=== PATIENT | female | born 1955 | race Caucasian/White ===

== ENCOUNTER 2018-02-23 09:36 | Emergency (ER) | payer MEDICARE, OTHER ==
[~2018-02-23 09:36] MED LIST: ASPI-183 PO; ESCI10TA PO; HYDR-3516 PO; LISI-519 PO; OMEP20TA93 PO; SYNT88TA PO
[2018-02-23 09:39] VITALS: BP 134/76; TEMP 97.7; O2SAT 96
--- NOTE | 2018-02-23 09:54 | PD ---
HPI Chief Complaint: Injury Time Seen by Provider: 09:48 Travel History International Travel<30 days: No Contact w/Intl Traveler<30days: No Traveled to known affect area: No History of Present Illness HPI 62-year-old female presents emergency department with worsening right heel pain over the past 3 days. Patient denies any specific injury, although she does remember stepping wrong off a step ladder the other day. She has since developed worsening pain in the posterior heel of the right foot to the point where she is having difficulty ambulating. She said some pain in the right great toe, for which she was going to see a ehs manager, but has not scheduled it yet. She denies fever, chills, or other symptoms. No history of gout. Pain is a 8 out of 10 and worse with bearing weight. Patient is allergic to statins, Zetia, and propoxyphene. PFSH Past Medical History Medical History: Denies Significant Hx Depression: Yes Cancer: Yes (SKIN CANCER ON FACE) Cardiovascular Problems: No Diabetes: No Endocrine: No Gastrointestinal Disorders: Yes (GERD) Genitourinary: No Hepatitis: No Hiatal Hernia: No Hypertension: Yes Immune Disorder: No Implanted Vascular Access Dvce: Yes Musculoskeletal: Yes (ARTHRITIS) Neurologic: No Psychiatric: Yes (DEPRESSION) Reproductive: No Respiratory: Yes (SLEEP APNEA, USES A MACHINE) Thyroid Disease: Yes ?: Not Past Surgical History Surgical History: No Previous Surgery Abdominal Surgery: Yes (GALLBLADDER, COLON RESECTION, HERNIA SURGERY WITH MESH) AICD: No Body Medical Devices: ABD MESH Joint Replacement: Yes (L SHOULDER) Pacemaker: No Other Surgery: Yes Social History Alcohol Use: Yes Tobacco Use: No Substance Use: No Allergies-Medications (Allergen,Severity, Reaction): Coded Allergies: propoxyphene (Verified Allergy, Severe, Confusion, 08/06/17) Jbopkjy-Yqh-Slm Reductase Inhibitor (Verified Allergy, Unknown, 08/06/17) ezetimibe (Verified Allergy, Unknown, 08/06/17) Reported Meds & Prescriptions Reported Meds & Active Scripts Active Prednisone 20 Mg Tab 20 Mg PO BID 5 Days Aspirin 325 Mg Tab 325 Mg PO BID Hydrocodone-Acetaminophen 5-325 mg Tab 2 Tab PO Q6HR PRN Reported Escitalopram (Escitalopram Oxalate) 10 Mg Tab 10 Mg PO DAILY Omeprazole 20 Mg Tab 20 Mg PO HS Lisinopril 5 Mg Tab 5 Mg PO DAILY Synthroid (Levothyroxine Sodium) 88 Mcg Tab 88 Mcg PO DAILY Review of Systems Except as stated in HPI: all other systems reviewed are Neg General / Constitutional: No: Fever Eyes: No: Visual changes HENT: No: Headaches Cardiovascular: No: Chest Pain or Discomfort Respiratory: No: Shortness of Breath Gastrointestinal: No: Abdominal Pain Genitourinary: No: Dysuria Musculoskeletal: Positive: Arthralgias, Limited ROM, Pain (See history of present) Skin: No Rash Neurologic: No: Weakness Psychiatric: No: Depression Endocrine: No: Polydipsia Hematologic/Lymphatic: No: Easy Bruising Physical Exam Narrative GENERAL: Patient appears in mild distress per SKIN: Warm and dry. Normal color. Normal turgor. No rash. No erythema. No signs of cellulitis HEAD: Atraumatic. Normocephalic. EYES: Pupils equal and round. No scleral icterus. No injection or drainage. ENT: No nasal bleeding or discharge. Mucous membranes pink and moist. Pharynx is clear. Airway is patent. NECK: Trachea midline. Supple and nontender CARDIOVASCULAR: Regular rate and rhythm. RESPIRATORY: No accessory muscle use. Clear to auscultation. Breath sounds equal bilaterally. MUSCULOSKELETAL: Extremities without clubbing, cyanosis, or edema. No obvious deformities. The right foot appears normal without significant swelling, or signs of infection. Patient is acutely tender at the insertion of the Achilles at the base of the right heel. Patient has no significant pain on the sole of her foot on the right. Rest of the muscle skeletal exam is unremarkable. NEUROLOGICAL: Awake and alert. No obvious cranial nerve deficits. Motor grossly within normal limits. Five out of 5 muscle strength in the arms and legs. Normal speech. PSYCHIATRIC: Appropriate mood and affect; insight and judgment normal. Data Data Last Documented VS Vital Signs Date Time Temp Pulse Resp B/P (MAP) Pulse Ox O2 Delivery O2 Flow Rate FiO2 02/23/18 09:39 97.7 74 20 134/76 (95) 96 Orders Orders Prednisone (Deltasone) (02/23/18 10:00) Foot, Complete ([id number]) (02/23/18 09:55) Crutches (02/23/18 09:55) Ed Discharge Order (02/23/18 10:34) MDM Medical Decision Making Medical Screen Exam Complete: Yes Emergency Medical Condition: Yes Differential Diagnosis Right heel pain. Achilles tendinitis. Plantar fasciitis. Bone spurs Narrative Course X-ray of the right foot is obtained. X-ray showed no acute findings per radiologist. Patient is given 40 mg prednisone p.o. Patient is placed on crutches. Patient can take extra strength Tylenol for pain. She is encouraged to use heat followed by ice and stretching Patient is to follow-up with Dr. Bocanegra, the ehs manager on-call for further evaluation and treatment. Diagnosis Primary Impression: Achilles tendinitis, left leg Referrals: Amelia Bocanegra DPM call for appointment Patient Instructions: Achilles Tendinitis (ED), Achilles Tendinitis Exercises ( GEN), General Instructions Med/Other Pt SpecificInfo: Prescription(s) given Scripts Prednisone (Prednisone) 20 Mg Tab 20 MG PO BID for 5 Days, #10 TAB 0 Refills Prov: Amelia Shaw MD 02/23/18 Disposition: 01 DISCHARGE HOME Condition: Stable Claude Knapp February 23, 2018 09:54
[2018-02-23] MEDS ORDERED: predniSONE 20 MG TAB PO ONE (10:00)
[2018-02-23] MEDS ORDERED: PRED20 PO (10:01)
--- NOTE | 2018-02-23 10:25 | RADRPT ---
EXAM DATE: 02/23/2018 10:22 AM EDT AGE/SEX: 62 years / Female INDICATIONS: RIght posterior foot and heel pain. CLINICAL DATA: This is the patient's initial encounter. Patient reports that signs and symptoms have been present for 4 - 6 days and indicates a pain score of 8/10. MEDICAL/SURGICAL HISTORY: None. None. COMPARISON: No prior [facility] exams available for comparison. FINDINGS: Bony structures are intact and in normal alignment. . Degenerative changes first metatarsal phalangea l joint. There is spurring posteriorly along the calcaneus. No radiopaque foreign bodies seen. CONCLUSION: No acute bony traumatic. No fracture. Electronically signed by: Ramon Hollingsworth MD 02/23/2018 10:24 AM EDT
== END 2018-02-23 11:00 | disposition home or self-care (01) ==
LOC: NEPK 09:36
DX: M76.62 Achilles tendinitis, left leg (principal); M79.674 Pain in right toe(s); F32.9 Major depressive disorder, single episode, unspecified; Z85.828 Personal history of other malignant neoplasm of skin; K21.9 Gastro-esophageal reflux disease without esophagitis; M19.90 Unspecified osteoarthritis, unspecified site; I10 Essential (primary) hypertension; G47.30 Sleep apnea, unspecified
CPT/HCPCS: 73630; 99283; E0113; J7512

== ENCOUNTER 2018-06-12 19:55 | Observation (INO) ==
--- NOTE | 2018-06-12 21:53 | ED ---
HPI General Chief Complaint: Dizziness Stated Complaint: dizzy, shaky Time Seen by Provider: 06/12/18 21:44 Source: patient Mode of arrival: ambulatory Limitations: no limitations History of Present Illness HPI Narrative: 63-year-old female presents to the emergency department for complaint of 4-5 days of not feeling well with dizziness worsening today. Patient's had indigestion reflux symptoms with chest discomfort 5-7/10 intensity at worst however currently 0/10 in intensity. Patient had episode of marked diaphoresis reportedly. Patient's also had intermittent nausea and shortness of breath. Patient states she has multiple complaints and has been to her primary care provider who is encouraged to follow-up with her camp head counselor but states that she has been too busy to do this. Patient became very anxious today as she felt near syncopal and she is responsible for childcare of a grandchild. Patient denies any fever has had intermittent chills no present headache although has had intermittent headache no visual disturbance no photophobia no diplopia no loss of vision no change in mentation no difficulty with her speech or swallowing. Patient's had no unilateral upper extremity or lower extremity numbness tingling or weakness. Patient's had generalized weakness. Patient denies any referred neck jaw back shoulder arm pain. Patient's had intermittent left lower quadrant abdominal pain with diarrhea and she states this makes her bed bound for 3 days when this occurs. Patient states this has not bothered her over the past 3 days. Patient's had previous partial colectomy due to diverticulitis complications in the remote past has had hernia mesh placement status post cholecystectomy. Patient denies any history of peptic ulcer disease gastritis pancreatitis or recurrent urinary symptoms. Patient has chronic recurrent hemorrhoidal issues and has intermittent red blood per rectum with wiping only. Patient's had no black or tarry stool. Patient denies any injury or fall. Patient states due to multiple complaints decided to come to the emergency room because she felt she needed to be evaluated. Patient is unable to identify exacerbating or alleviating factors. MD complaint: dizziness and near syncope Onset (ago): day(s) (4-5 days) Timing: gradual onset, intermittent and waxing/waning Description: "room spinning" and lightheadedness History of similar episodes: Yes (vertigo in the past) History of trauma: No Severity: moderate Relieving factors: nothing Exacerbating factors: nothing Associated symptoms: chest pain ("reflux"), diaphoresis, shortness of breath, weakness and nausea Related Data Home Medications Medication Instructions Recorded Confirmed escitalopram oxalate [Lexapro] 10 mg PO DAILY 06/12/18 06/12/18 levothyroxine [Synthroid] 88 mcg PO DAILY 06/12/18 06/12/18 lisinopril 5 mg PO DAILY 06/12/18 06/12/18 omeprazole 20 mg PO DAILY 06/12/18 06/12/18 Allergies Allergy/AdvReac Type Severity Reaction Status Date / Time propoxyphene Allergy Severe Confusion Verified 06/12/18 20:39 ezetimibe Allergy Unknown Muscle Pain Verified 06/12/18 20:39 Idthzwi-Pjv-Fqa Reductase Allergy Unknown Muscle Pain Verified 06/12/18 20:39 Inhibitor Review of Systems ROS: all other systems reviewed are negative [facility] Medical History Medical History Arthritis (Acute) HTN (hypertension) (Acute) Hx of carpal tunnel syndrome (Acute) Hx of diverticulitis of colon (Acute) Hx of skin malignancy (Acute) Surgical History Surgical History Hx of cholecystectomy (Acute) Hx of hernia repair (Acute) Hx of shoulder replacement (Acute) Social History Social History Substance History: No History of Abuse Second Hand Smoke Exposure: No Smoking Status: Former smoker How Often Do You Have a Drink Containing Alcohol: 4 or more times a week Recent Travel [facility] within the Last 8 Weeks: No Recent Out of Country Travel within the Last 8 Weeks: No Immunization History Tetanus Immunization: <5 Years Hx Influenza Vaccine This Season: Yes Exam Narrative Exam Narrative: GENERAL: Well-developed well-nourished female in no acute distress no respiratory distress GCS 15 SKIN: Focused skin assessment warm/dry. HEAD: Atraumatic. Normocephalic. EYES: Pupils equal and round and reactive to light. No scleral icterus. No injection or drainage. ENT: No nasal bleeding or discharge. Mucous membranes pink and moist. Airway is patent. NECK: Trachea midline. No JVD. Supple no meningismus no nuchal rigidity. CARDIOVASCULAR: Regular rate and rhythm. No murmur appreciated. RESPIRATORY: No accessory muscle use. Clear to auscultation. Breath sounds equal bilaterally. GASTROINTESTINAL: Abdomen soft, mild tenderness to palpation left lower quadrant without guarding or rebound and no palpable pulsatile mass, nondistended. Hepatic and splenic margins not palpable. MUSCULOSKELETAL: No obvious deformities. No clubbing. No cyanosis. No edema. Radial and dorsalis pedis pulses 2+ to palpation bilaterally. NEUROLOGICAL: Awake and alert. GCS 15 no obvious cranial nerve deficits. Motor grossly within normal limits 5/5 bilateral upper extremities and lower extremities. No pronator drift. No limb ataxia. Normal speech. PSYCHIATRIC: Appropriate mood and affect; insight and judgment normal. Course Initial Documented Vital Signs Temperature 98.6 F 06/12/18 20:34 Pulse Rate 65 06/12/18 20:34 Respiratory Rate 18 06/12/18 20:34 Blood Pressure 173/89 H 06/12/18 20:34 Pulse Oximetry 99 06/12/18 20:34 Last Documented Vital Signs Temperature 98.7 F 06/13/18 03:12 Pulse Rate 63 06/13/18 03:12 Respiratory Rate 18 06/13/18 03:12 Blood Pressure 118/67 06/13/18 03:12 Pulse Oximetry 99 06/13/18 06:33 Medical Decision Making MDM Narrative Medical Screen Exam Complete: Yes Emergency Medical Condition: Yes Differential Diagnosis Differential Diagnosis: Dizziness, vertigo, arrhythmia, dehydration, anemia, acs , mi, tia, dehydration, uti, sepsis Lab Data Result diagrams: 06/12/18 21:55 06/12/18 21:55 Lab Results 06/12/18 06/12/18 06/12/18 Range/Units 21:55 21:55 21:55 WBC 8.2 (4.0-11.0) th/mm3 RBC 4.44 (4.00-5.30) mil/mm3 Hgb 11.9 (11.6-15.3) gm/dL Hct 36.9 (35.0-46.0) % MCV 83.1 (80.0-100.0) fL MCH 26.8 L (27.0-34.0) pg MCHC 32.3 (32.0-36.0) % RDW 16.6 (11.6-17.2) % Plt Count 231 (150-450) th/mm3 MPV 7.3 (7.0-11.0) fL Neut % (Auto) 62.8 (16.0-70.0) % Lymph % (Auto) 27.1 (9.0-44.0) % [place] % (Auto) 6.3 (0.0-8.0) % Eos % (Auto) 3.2 (0.0-4.0) % Baso % (Auto) 0.6 (0.0-2.0) % Neut # (Auto) 5.1 (1.8-7.7) th/mm3 Lymph # (Auto) 2.2 (1.0-4.8) th/mm3 [place] # (Auto) 0.5 (0.0-0.9) th/mm3 Eos # (Auto) 0.3 (0.0-0.4) th/mm3 Baso # (Auto) 0.0 (0.0-0.2) th/mm3 WBC Differential . Differential Comment Auto diff final PT 10.3 (9.8-11.6) sec INR 1.0 Ratio Sodium 141 (136-145) meq/L Potassium 3.9 (3.5-5.1) meq/L Chloride 107 (98-107) meq/L Carbon Dioxide 23.5 (21.0-32.0) meq/L Anion Gap 11 (5-15) meq/L BUN 14 (7-18) mg/dL Creatinine 0.96 (0.50-1.00) mg/dL Estimated GFR 58 L (>89) mL/min Random Glucose 102 (74-106) mg/dL Calcium 8.8 (8.5-10.1) mg/dL Total Bilirubin 0.2 (0.2-1.0) mg/dL AST 70 H (15-37) U/L ALT 53 (10-53) U/L Alkaline Phosphatase 141 H (45-117) U/L Total Creatine Kinase (26-192) U/L Troponin I Less than 0.02 L (0.02-0.05) ng/mL Total Protein 7.8 (6.4-8.2) g/dL Albumin 3.3 L (3.4-5.0) g/dL TSH 0.074 L (0.358-3.740) uIU/mL Urine Color (Yellw/Straw) Urine Clarity (Clear) Urine pH (5.0-8.5) Ur Specific [place] (1.002-1.035) Urine Protein (Neg-Trace) mg/dL Urine Glucose (UA) (Negative) mg/dL Urine Ketones (Negative) mg/dL Urine Occult Blood (Negative) Urine Nitrate (Negative) Urine Bilirubin (Negative) Urine Urobilinogen (Less than 2) mg/dL Ur Leukocyte Esterase (Negative) Urine RBC (0-3) /hpf Urine WBC (0-5) /hpf Ur Squamous Epith Cells (0-5) /hpf Urine Bacteria (None) /hpf Hyaline Casts (0-3) /lpf Urine Mucus (Occasional) /lpf Micro UA Comment Ur Microscopic Review Urine Culture Comments 06/12/18 06/13/18 Range/Units 22:30 01:15 WBC (4.0-11.0) th/mm3 RBC (4.00-5.30) mil/mm3 Hgb (11.6-15.3) gm/dL Hct (35.0-46.0) % MCV (80.0-100.0) fL MCH (27.0-34.0) pg MCHC (32.0-36.0) % RDW (11.6-17.2) % Plt Count (150-450) th/mm3 MPV (7.0-11.0) fL Neut % (Auto) (16.0-70.0) % Lymph % (Auto) (9.0-44.0) % [place] % (Auto) (0.0-8.0) % Eos % (Auto) (0.0-4.0) % Baso % (Auto) (0.0-2.0) % Neut # (Auto) (1.8-7.7) th/mm3 Lymph # (Auto) (1.0-4.8) th/mm3 [place] # (Auto) (0.0-0.9) th/mm3 Eos # (Auto) (0.0-0.4) th/mm3 Baso # (Auto) (0.0-0.2) th/mm3 WBC Differential Differential Comment PT (9.8-11.6) sec INR Ratio Sodium (136-145) meq/L Potassium (3.5-5.1) meq/L Chloride (98-107) meq/L Carbon Dioxide (21.0-32.0) meq/L Anion Gap (5-15) meq/L BUN (7-18) mg/dL Creatinine (0.50-1.00) mg/dL Estimated GFR (>89) mL/min Random Glucose (74-106) mg/dL Calcium (8.5-10.1) mg/dL Total Bilirubin (0.2-1.0) mg/dL AST (15-37) U/L ALT (10-53) U/L Alkaline Phosphatase (45-117) U/L Total Creatine Kinase 52 (26-192) U/L Troponin I Less than 0.02 L (0.02-0.05) ng/mL Total Protein (6.4-8.2) g/dL Albumin (3.4-5.0) g/dL TSH (0.358-3.740) uIU/mL Urine Color Yellow (Yellw/Straw) Urine Clarity Hazy H (Clear) Urine pH 5.0 (5.0-8.5) Ur Specific [place] 1.024 (1.002-1.035) Urine Protein Negative (Neg-Trace) mg/dL Urine Glucose (UA) Negative (Negative) mg/dL Urine Ketones Trace H (Negative) mg/dL Urine Occult Blood Negative (Negative) Urine Nitrate Negative (Negative) Urine Bilirubin Negative (Negative) Urine Urobilinogen 4 or greater (Less than 2) mg/dL Ur Leukocyte Esterase Trace H (Negative) Urine RBC 1 (0-3) /hpf Urine WBC 3 (0-5) /hpf Ur Squamous Epith Cells 3 (0-5) /hpf Urine Bacteria Rare H (None) /hpf Hyaline Casts 4 (0-3) /lpf Urine Mucus Few H (Occasional) /lpf Micro UA Comment Culture not ind Ur Microscopic Review Not Reportable Urine Culture Comments Culture not ind Imaging Data Radiologist's impression: Chest X-Ray 06/12/18 21:44 CONCLUSION: No evidence of acute cardiopulmonary disease. Head CT 06/12/18 21:44 CONCLUSION: No acute intracranial abnormality. . ECG Data EKG Prior to Arrival: No Attestation: I personally reviewed and interpreted this ECG as follows: Prior ECG tracings: not available for review Interpretation: EKG: Normal sinus rhythm rate [address] elevation injury pattern or ectopy noted Discharge Plan Discharge Disposition Patient Disposition: 30 Still Patient Discharge Condition Condition: Stable Discharge Details Diagnosis: Chest pain, Vertigo Physicians Team ED Provider: Svitlana Hernandez Primary Care Provider: UNKNOWN, Attending Provider: [place] Discharge Interventions Interventions: ED Discharge Assessment Last Done: 06/13/18 01:53 Vital Signs Last Done: 06/12/18 21:28 Status ED Status: Left Department Discharge Information Discharge Date/Time: 06/13/18 01:53
--- NOTE | 2018-06-12 22:02 | CT ---
EXAM DATE: 06/12/2018 9:56 PM EDT AGE/SEX: 63 years / Female INDICATIONS: Dizziness. CLINICAL DATA: This is the patient's initial encounter. Patient reports that signs and symptoms have been present for 1 day and indicates a pain score of 0/10. MEDICAL/SURGICAL HISTORY: Hypertension. None. RADIATION DOSE: 56.35 CTDI (mGy) COMPARISON: . TECHNIQUE: CT of the head without contrast. Using automated exposure control and adjustment of the mA and/or kV according to patient size, radiation dose was kept as low as reasonably achievable to ob tain optimal diagnostic quality images. DICOM format image data is available electronically for revi ew and comparison. FINDINGS: Cerebrum: The ventricles are normal for age. No evidence of midline shift, mass lesion, hemorrhage or acute infarction. No extraaxial fluid collections are seen. Posterior Fossa: The cerebellum and brainstem are intact. The 4th ventricle is midline. The cerebe llopontine angle is unremarkable. Extracranial: The visualized portion of the orbits is intact. Skull: The calvaria is intact. No evidence of skull fracture. CONCLUSION: No acute intracranial abnormality. . Electronically signed by: Cayetano Dumont MD 06/12/2018 10:01 PM EDT
[2018-06-12] MEDS ORDERED: Pantoprazole Inj 40 MG Vial IV.PUSH ONE (22:06)
[2018-06-12 22:16] LABS: Baso % (Auto) 0.6 % (0.0-2.0); Eos # (Auto) 0.3 th/mm3 (0.0-0.4); Eos % (Auto) 3.2 % (0.0-4.0); Hematocrit 36.9 % (35.0-46.0); Hemoglobin 11.9 gm/dL (11.6-15.3); Lymph # (Auto) 2.2 th/mm3 (1.0-4.8); Lymph % (Auto) 27.1 % (9.0-44.0); Mean Corpuscular HGB Conc 32.3 % (32.0-36.0); Mean Corpuscular Hemoglobin 26.8 pg (27.0-34.0); Mean Corpuscular Volume 83.1 fL (80.0-100.0); Mean Platelet Volume 7.3 fL (7.0-11.0); Mono # (Auto) 0.5 th/mm3 (0.0-0.9); Mono % (Auto) 6.3 % (0.0-8.0); Neut # (Auto) 5.1 th/mm3 (1.8-7.7); Neut % (Auto) 62.8 % (16.0-70.0); Platelet Count 231 th/mm3 (150-450); Red Blood Count 4.44 mil/mm3 (4.00-5.30); Red Cell Distribution Width 16.6 % (11.6-17.2); White Blood Count 8.2 th/mm3 (4.0-11.0)
--- NOTE | 2018-06-12 22:17 | XR ---
EXAM DATE: 06/12/2018 10:10 PM EDT AGE/SEX: 63 years / Female INDICATIONS: Short of breath. CLINICAL DATA: This is the patient's initial encounter. Patient reports that signs and symptoms have been present for 4 - 6 days and indicates a pain score of 0/10. MEDICAL/SURGICAL HISTORY: Hypertension. . Shoulder surgery. COMPARISON: 08/07/2017 1V chest x-ray. FINDINGS: No infiltrate, effusion or pneumothorax. Heart size stable, within normal limits. Thoracic aorta is tortuous. Potentially a small hiatal herni a. CONCLUSION: No evidence of acute cardiopulmonary disease. Electronically signed by: Cayetano Dumont MD 06/12/2018 10:16 PM EDT
[2018-06-12 22:40] LABS: Prothrombin Time 10.3 sec (9.8-11.6)
[2018-06-12 22:41] LABS: Alanine Aminotransferase 53 U/L (10-53)
[2018-06-12 22:49] LABS: Albumin 3.3 g/dL (3.4-5.0); Anion Gap 11 meq/L (5-15); Aspartate Aminotransferase 70 U/L (15-37); Blood Urea Nitrogen 14 mg/dL (7-18); Calcium 8.8 mg/dL (8.5-10.1); Carbon Dioxide 23.5 meq/L (21.0-32.0); Chloride 107 meq/L (98-107); Glomerular Filtration Rate 58 mL/min (>89); Glucose,Random 102 mg/dL (74-106); Potassium 3.9 meq/L (3.5-5.1); Sodium 141 meq/L (136-145)
[2018-06-12 22:50] LABS: Alkaline Phosphatase 141 U/L (45-117); Thyroid Stimulating Hormone 0.074 uIU/mL (0.358-3.740); Total Protein 7.8 g/dL (6.4-8.2)
[2018-06-12 22:51] LABS: Bacteria,Urine Rare /hpf; Bilirubin,Urine Negative (Negative); Clarity,Urine Hazy (Clear); Color,Urine Yellow (Yellw/Straw); Glucose,Urine (UA) Negative (Negative); Hyaline Casts,Urine 4 /lpf (0-3); Leukocyte Esterase,Urine Trace (Negative); Mucus,Urine Few /lpf (Occasional); Nitrite,Urine Negative (Negative); Specific Gravity,Urine 1.024 (1.002-1.035); Squamous Epithelial Cell,Urine 3 /hpf (0-5); Urobilinogen,Urine 4 or Greater mg/dL (Less than 2)
[2018-06-13 01:52] LABS: Creatine Kinase 52 U/L (26-192)
[2018-06-13] MEDS ORDERED: Aspirin 325 MG Tablet PO SCH (09:00)
[2018-06-13] MEDS ORDERED: Levothyroxine 88 MCG Tablet PO SCH (09:00)
[2018-06-13] MEDS ORDERED: Escitalopram 10 MG Tablet PO SCH (09:00)
[2018-06-13] MEDS ORDERED: Pantoprazole Sodium 20 MG DR Tablet PO SCH (09:15)
[2018-06-13] MEDS ORDERED: Regadenoson Inj 0.4 MG/5 ML Syringe IV.PUSH ONE (09:33)
--- NOTE | 2018-06-13 09:54 | P.HPCA ---
History of Present Illness Primary Care Physician: UNKNOWN Chief Complaint: Chest pain History of Present Illness: This is a 63-year-old female history of hypertension, hypothyroidism, and GERD that presents to ED with complaint of dizziness for 4-5 days which she describes at times if she were to move her head the room spins. She is also had heartburn issues. She describes as a burning in her chest that was 2 days ago. She states she really does not have much issues with that since taking Prilosec. However the Prilosec did not work 2 nights ago. Then yesterday while she was sitting home talking with her grandchild, she broke out into a cold sweat lasted about 30 minutes. When asked about chest pain. She declines it at first but states that she had a chest discomfort about a month ago. Is left-sided. Lasted a few seconds. Did not really give it much thought. States she has had stress test before. States is many years ago and that was okay. Has hypothyroidism states her medication was adjusted couple months ago. States she needed a little bit more Synthroid. Her TSH in the ED yesterday was a little bit low. Currently denies chest pain. Denies dizziness at this time. Patient has history of hypertension, hypothyroidism, GERD. Quit smoking 20 years ago but prior that she smoked about 1 pack of cigarettes daily for 20 years. Her brother had a coronary artery bypass grafting in his 60s. - Diagnosis (1) Chest pain (2) Hypertension (3) Hypothyroidism Review of Systems General: Patient denies fevers, chills, and recent travel. HEENT: Patient denies headache, sore throat, difficulty swallowing. Cardiovascular: Has the chest discomfort as mentioned above. Denies sensation of heart beating rapidly or irregularly. No syncope. Broke out into a sweat yesterday while talking with her grandchild. Respiratory: Denies shortness of breath or inspirational chest discomfort. Denies coughing wheezing or hemoptysis. GI: Patient denies nausea, vomiting, diarrhea, abdominal pain, bloody stools. Musculoskeletal: Patient denies joint pain or edema. Denies calf pain or edema. Neurovascular: Patient denies numbness, tingling, weakness in extremities. Denies headache. Endocrine: Denies polyuria and polydipsia. Hematologic: Denies easy bruising. Skin: Denies rash or itching. PMFSH - History History Provided By: Patient - Medical History Medical History: Medical History (Last Reviewed 06/12/18 @ 21:50 by Svitlana Hernandez MD) Arthritis HTN (hypertension) Hx of carpal tunnel syndrome Hx of diverticulitis of colon Hx of skin malignancy - Surgical History Surgical History: Surgical History (Last Reviewed 06/12/18 @ 21:50 by Svitlana Hernandez MD) Hx of cholecystectomy Hx of hernia repair Hx of shoulder replacement - Tobacco History Second Hand Smoke Exposure: No Tobacco Use In Past 30 Days: No Smoking Status: Former smoker - Alcohol History How Often Do You Have a Drink Containing Alcohol: 4 or more times a week - Substance Use History Substance History: No History of Abuse - Travel History Recent Travel in the [place] Within the Last 8 Weeks: No Recent Travel Out of the Country Within the Last 8 Weeks: No - Immunization History Tetanus Immunization: <5 Years Hx Influenza Vaccine This Season: Yes Medications and Allergies Active Medications: Active Medications Aspirin (Aspirin) 325 mg PO DAILY HONEY Escitalopram Oxalate (Lexapro) 10 mg PO DAILY HONEY Levothyroxine Sodium (Synthroid) 88 mcg PO DAILY@0600 HOENY Nitroglycerin (Nitrostat Sl) 0.4 mg SL Q5M PRN PRN Reason: CHEST PAIN Pantoprazole Sodium (Protonix) 20 mg PO DAILY HONEY Sodium Chloride (Ns Flush) 2 ml IV.FLUSH PRN PRN PRN Reason: FLUSH AFTER USING IV ACCESS Sodium Chloride (Ns Flush) 2 ml IV.FLUSH BID HONEY Sodium Chloride (Ns Flush) 2 ml IV.FLUSH PRN PRN PRN Reason: FLUSH AFTER USING IV ACCESS Allergies Allergy/AdvReac Type Severity Reaction Status Date / Time propoxyphene Allergy Severe Confusion Verified 06/12/18 20:39 ezetimibe Allergy Unknown Muscle Pain Verified 06/12/18 20:39 Odunnxs-Pou-Mmu Reductase Allergy Unknown Muscle Pain Verified 06/12/18 20:39 Inhibitor Home Medications Medication Instructions Recorded Confirmed Type escitalopram oxalate [Lexapro] 10 mg PO DAILY 06/12/18 06/12/18 History levothyroxine [Synthroid] 88 mcg PO DAILY 06/12/18 06/12/18 History omeprazole 20 mg PO DAILY 06/12/18 06/12/18 History lisinopril 5 mg PO DAILY 06/13/18 06/13/18 History Exam Vital signs: Vital Signs 06/12/18 20:34 06/12/18 21:28 06/12/18 21:47 Temperature 98.6 F Pulse Rate 65 63 Respiratory Rate 18 Blood Pressure 173/89 H 175/84 H Pulse Oximetry 99 97 98 06/13/18 00:42 06/13/18 03:12 06/13/18 06:33 Temperature 98.7 F Pulse Rate 58 L 63 Respiratory Rate 18 18 Blood Pressure 146/74 H 118/67 Pulse Oximetry 97 95 99 06/13/18 07:24 Temperature 98.3 F Pulse Rate 59 L Respiratory Rate 20 Blood Pressure 129/68 Pulse Oximetry 94 L Intake & Output 06/12/18 06/13/18 06/13/18 18:59 06:59 18:59 Intake Total Balance Weight 88 kg Intake: Oral Other: # Voids 0 Date of Last Bowel Movement 06/13/18 Narrative: GENERAL: This is a well-nourished, well-developed patient, in no apparent distress. Patient speaks in clear complete sentences. Patient is pleasant. HEENT: Head is atraumatic and normocephalic. Neck is supple without lymphadenopathy and trachea is midline. No JVD or carotid bruits. CARDIOVASCULAR: Regular rate and rhythm without murmurs, gallops, or rubs. RESPIRATORY: Clear to auscultation. Breath sounds equal bilaterally. No wheezes , rales, or rhonchi. Chest wall is nontender. No use of accessory muscles. GASTROINTESTINAL: Abdomen is nontender, nondistended. Abdomen soft. No obvious pulsatile mass or bruit. No CVA tenderness. Strong femoral pulses bilaterally. Normal bowel sounds in all quadrants. MUSCULOSKELETAL: Patient is moving upper and lower extremities freely. No calf tenderness or edema, no Homans sign. Strong pulses in upper and lower extremities. NEUROLOGICAL: Patient is alert and oriented. Cranial nerves 2-12 are grossly intact. No focal deficits and speech is clear. SKIN: No rash and turgor is normal. Results 06/12/18 21:55 06/12/18 21:55 Cardiac Enzymes 06/12/18 06/13/18 Range/Units 21:55 01:15 AST 70 H (15-37) U/L Troponin I Less than 0.02 L Less than 0.02 L (0.02-0.05) ng/mL Coagulation 06/12/18 Range/Units 21:55 PT 10.3 (9.8-11.6) sec CBC 06/12/18 Range/Units 21:55 WBC 8.2 (4.0-11.0) th/mm3 RBC 4.44 (4.00-5.30) mil/mm3 Hgb 11.9 (11.6-15.3) gm/dL Hct 36.9 (35.0-46.0) % Plt Count 231 (150-450) th/mm3 Neut # (Auto) 5.1 (1.8-7.7) th/mm3 Lymph # (Auto) 2.2 (1.0-4.8) th/mm3 [place] # (Auto) 0.5 (0.0-0.9) th/mm3 Eos # (Auto) 0.3 (0.0-0.4) th/mm3 Baso # (Auto) 0.0 (0.0-0.2) th/mm3 Comprehensive Metabolic Panel 06/12/18 Range/Units 21:55 Sodium 141 (136-145) meq/L Potassium 3.9 (3.5-5.1) meq/L Chloride 107 (98-107) meq/L Carbon Dioxide 23.5 (21.0-32.0) meq/L BUN 14 (7-18) mg/dL Creatinine 0.96 (0.50-1.00) mg/dL Calcium 8.8 (8.5-10.1) mg/dL AST 70 H (15-37) U/L ALT 53 (10-53) U/L Alkaline Phosphatase 141 H (45-117) U/L Total Protein 7.8 (6.4-8.2) g/dL Albumin 3.3 L (3.4-5.0) g/dL Intake and Output 06/12/18 06/13/18 06/13/18 22:59 06:59 14:59 Intake Total Balance Intake: Oral Other: # Voids 0 Date of Last Bowel Movement 06/13/18 Weight 88 kg EKG interpretations - EKG EKG shows: bradycardia (EKGs are sinus bradycardia without significant ST segment depressions or elevations.) Caprini VTE Risk Assessment Caprini VTE Risk Assessment: Moderate/High Risk (score >= 2) Caprini Risk Assessment Model: Point Value = 1 Point Value = 2 Point Value = 3 Point Value = 5 Age 41-60 Minor surgery BMI > 25 kg/m2 Swollen legs Varicose veins or History of unexplained or recurrent spontaneous Oral contraceptives or hormone replacement Sepsis (< 1 month) Serious lung disease, including pneumonia (< 1 month) Abnormal pulmonary function Acute myocardial infarction Congestive heart failure (< 1 month) History of inflammatory bowel disease Medical patient at bed rest Age 61-74 Arthroscopic surgery Major open surgery (> 45 min) Laparoscopic surgery (> 45 min) Malignancy Confined to bed (> 72 hours) Immobilizing plaster cast Central venous access Age >= 75 History of VTE Family history of VTE Factor V Leiden Prothrombin [id number] Lupus anticoagulant Anticardiolipin antibodies Elevated serum homocysteine Heparin-induced thrombocytopenia Other congenital or acquired thrombophilia Stroke (< 1 month) Elective arthroplasty Hip, pelvis, or leg fracture Acute spinal cord injury (< 1 month) Prophylaxis Regimen: Total Risk Factor Score Risk Level Prophylaxis Regimen 0-1 Low Early ambulation 2 Moderate Order ONE of the following: *Sequential Compression Device (SCD) *Heparin 5000 units SQ BID 3-4 Higher Order ONE of the following medications: *Heparin 5000 units SQ TID *Enoxaparin/Lovenox 40 mg SQ daily (WT < 150 kg, CrCl > 30 mL/min) *Enoxaparin/Lovenox 30 mg SQ daily (WT < 150 kg, CrCl > 10-29 mL/min) *Enoxaparin/Lovenox 30 mg SQ BID (WT < 150 kg, CrCl > 30 mL/min) AND/OR *Sequential Compression Device (SCD) 5 or more Highest Order ONE of the following medications: *Heparin 5000 units SQ TID (Preferred with Epidurals) *Enoxaparin/Lovenox 40 mg SQ daily (WT < 150 kg, CrCl > 30 mL/min) *Enoxaparin/Lovenox 30 mg SQ daily (WT < 150 kg, CrCl > 10-29 mL/min) *Enoxaparin/Lovenox 30 mg SQ BID (WT < 150 kg, CrCl > 30 mL/min) AND *Sequential Compression Device (SCD) Assessment and Plan - Assessment (1) Chest pain Code(s): R07.9 - Chest pain, unspecified Status: Acute (2) Hypertension Code(s): I10 - Essential (primary) hypertension Status: Acute (3) Hypothyroidism Code(s): E03.9 - Hypothyroidism, unspecified Status: Acute - Plan * Chest pain: Patient had cardiac enzymes and EKGs for ruling out purposes. She will be seen by Dr. Edwards cardiology in the chest pain center. She will undergo a Lexiscan be discharged home if her stress test is nonischemic with instructions to follow-up with PCP. Return to ED for interval issues. * Hypertension: Continue medication. * GERD: Continue medication. * Hypothyroidism: TSH is low. Patient should follow-up with her PCP for further adjustment if needed. Patient is stable at this time. She is agreeable to this plan. H&P: Quality - VTE Deep Vein Thrombosis/Pulmonary Embolism Present on Admission: No
[2018-06-13] MEDS ORDERED: Lisinopril 5 MG Tablet PO SCH (10:00)
--- NOTE | 2018-06-13 10:30 | ECG ---
Date Performed: 06/12/2018 Time Performed: 21:24:56 PTAGE: 63 years EKG: Sinus rhythm NORMAL ECG PREVIOUS TRACING : 08/06/2017 16.28 Since previous tracing, no significant change noted DOCTOR: Dagoberto Edwards Interpretating Date/Time 06/13/2018 10:29:14
--- NOTE | 2018-06-13 10:37 | ECG ---
Date Performed: 06/13/2018 Time Performed: 01:10:23 PTAGE: 63 years EKG: SINUS BRADYCARDIA BORDERLINE ECG PREVIOUS TRACING : 06/12/2018 21.24 Since previous tracing, no significant change noted DOCTOR: Dagoberto Edwards Interpretating Date/Time 06/13/2018 10:35:08
--- NOTE | 2018-06-13 10:57 | NM ---
EXAM DATE: 06/13/2018 10:47 AM EDT AGE/SEX: 63 years / Female INDICATIONS:Angina. . Substernal chest pain and syncope. CLINICAL DATA: This is the patient's initial encounter. Patient reports that signs and symptoms have been present for 1 day and indicates a pain score of 6/10. MEDICAL/SURGICAL HISTORY: Hypertension. Cholecystectomy. Shoulder replacement and hernia repair . COMPARISON: No prior exams available for comparison. DOSE: 8.5 mCi Tc 99m Myoview at rest 25.4 mCi [id number] at stress 0.4 mg Lexiscan STRESS SYMPTOMS: Dyspnea, chest pressure, headache and dizziness. EJECTION FRACTION: 65 % TECHNIQUE: The patient underwent pharmacologic stress with infusion of prescribed dose. Continuous ECG tracing was monitored during stress. Gated SPECT imaging was performed after stress and conventi onal SPECT imaging was performed at rest. The examination was performed on a SPECT/CT scanner, both attenuation and non-corrected datasets were reviewed. FINDINGS: Distribution: The maximum perfused segment at stress is in the anterior wall. Perfusion Study: The pattern of perfusion at stress is within normal limits. Gated Study: There are intact wall motion and wall thickening without hypokinetic or dyskinetic segm ents. The ejection fraction is calculated at 65%. RISK CATEGORY: Low (<1% Annual Motality Rate) CONCLUSION: 1. Negative examination. Electronically signed by: Kaden Mckeon MD 06/13/2018 10:56 AM EDT
[2018-06-13 11:18] VITALS: BP 114/56; PULSE 60; RESP 18; TEMP 97.5; O2SAT 85
--- NOTE | 2018-06-14 11:08 | TR ---
Date Performed: 06/13/2018 Time Performed: 09:50:50 DOCTOR: Dagoberto Edwards DRUG LIST: CLINICAL HISTORY: CHEST PAIN REASON FOR TEST: CHEST PAIN REASON FOR ENDING: OBSERVATION: CONCLUSION: COMMENTS: Lexiscan stress test was performed under standard four minute protocol. Radionuclide was injected one minute prior to ending the test. No electrocardiographic abormalities were present t o suggest ischemia. Nuclear imaging and interpretation are pending.
--- NOTE | 2018-06-14 14:23 | ECG ---
Date Performed: 06/13/2018 Time Performed: 08:07:30 PTAGE: 63 years EKG: SINUS BRADYCARDIA BORDERLINE ECG INTERPRETATION BASED ON A DEFAULT AGE OF 40 YEARS PREVIOUS TRACING : 06/13/2018 01.10 Since previous tracing, no significant change noted DOCTOR: Dagoberto Edwards Interpretating Date/Time 06/14/2018 14:21:44
== END 2018-06-13 12:37 | disposition home or self-care (01) ==
LOC: NEDA 19:55 → NEPC 19:55 → NEPHCDU 06-13 01:49
PROVIDERS: ADMIT Internal Medicine Interventional Cardiology; ATTEND Internal Medicine Interventional Cardiology